=== PATIENT | male | born 1955 | race Caucasian/White ===

== ENCOUNTER 2018-01-31 08:20 | Day surgery (SDC) | payer OTHER ==
[2018-01-28 10:03] VITALS: BMI 31.8
[~2018-01-31 08:20] MED LIST: Dexamethasone 20 MG/5 ML VIAL ONE; Glycopyrrolate 0.2 MG/ML 5 ML SYRINGE ONE; Ketorolac Tromethamine 30 MG/ML VIAL ONE; Lidocaine 1% PF 5 ML VIAL ONE; Ondansetron HCl/PF 4 MG/2 ML Vial ONE; PHENYLEPHRINE-NS 100 MCG/ML 10 ML SYRINGE ONE; PROPOFOL 200 MG/20 ML VIAL ONE
[2018-01-31 09:37] LABS: #Basophils 0.1 thou/uL (0.0-0.2); #Eosinphils 0.4 thou/uL (0.0-0.7); #Lymphocytes 2.7 thou/uL (1.20-3.40); #Monocytes 0.8 thou/uL (0.11-0.59); #Neutrophils 3.2 thou/uL (1.40-6.50); %Basophils 1.4 % (0.0-1.0); %Eosinophils 6.2 % (0.0-10.0); %Lymphocytes 37.5 % (21.0-51.0); %Monocytes 10.7 % (0.0-10.0); %Neutrophils 44.2 % (42.0-75.0); Hemoglobin 15.8 g/dL (14.0-18.0); Mean Corpuscular HGB CONC 32.9 g/dL (32.0-36.0); Mean Corpuscular Hemoglobin 29.1 pg (27.0-31.0); Mean Corpuscular Volume 88.6 fL (78.0-98.0); Mean Platelet Volume 8.7 fL (7.4-10.4); Platelet Count 179 thou/uL (130-400); RBC Distribution Width 12.4 % (11.5-14.5); Red Blood Cell (RBC) Count 5.43 mill/uL (4.70-6.10); White Blood Cell (WBC) Count 7.2 thou/uL (4.8-10.8)
[2018-01-31] MEDS ORDERED: CEFAZOLIN/Water 2 GM/20 ML SYRINGE ONE (09:47)
[2018-01-31 09:58] LABS: Anion Gap 15 mmol/L (10-20); BUN (Urea Nitrogen) 21 mg/dL (8.4-25.7); Calc. Creatinine Clearance 75 mL/min (70-130); Calcium 9.9 mg/dL (7.8-10.44); Carbon Dioxide 22 mmol/L (22-29); Chloride 107 mmol/L (98-107); Estimated GFR-MDRD 45; Glucose 273 mg/dL (70-105); Potassium 4.8 mmol/L (3.5-5.1); Sodium 139 mmol/L (136-145)
[2018-01-31] MEDS ORDERED: Sodium Chloride 0.9% 10 ML ONE (11:19)
[2018-01-31] MEDS ORDERED: Gelfilm 1 EA Packet ONE (11:19)
[2018-01-31] MEDS ORDERED: Fentanyl 100 MCG/2 ML VIAL ONE ×3 (11:43→14:00)
[2018-01-31] MEDS ORDERED: Fentanyl 250 MCG/5 ML VIAL ONE (11:54)
--- NOTE | 2018-01-31 15:27 | OP ---
DATE OF PROCEDURE: 01/31/2018 SURGEON: Lazaro Berry M.D. IMPLEMENTATION MANAGER: Alan Bolton PA-C. PROCEDURE: Anterior cervical discectomy C5-C6, interbody arthrodesis, intravertebral biomechanical d evice, local morselized autograft, demineralized bone matrix, anterior titanium instrumentation C5-C6 . PROCEDURE IN DETAIL: The patient was brought to the operating room, intubated. He was positioned richard pine, head in modest extension on a gel-filled donut. Incision was made in the right precervical are a and dissecting medial to the sternocleidomastoid muscle, identified the anterior cervical spine and our level was confirmed by x-ray. We debrided extensive anterior osteophytes, placed distraction ac ross C5-C6 and removed the intravertebral disc, which was already quite collapsed. The bony endplate s were then decorticated for the purpose of arthrodesis and appropriately sized intravertebral biomec hanical PEEK device was brought into the field, filled with demineralized bone matrix and local tolbert lized autograft, and tapped into place securely at C5-C6. Next, an anterior plate was brought in the field and secured to C5 and C6 using two 14 mm screws at each level. The wound was then extensively irrigated, immaculate hemostasis was secured, and the wound was closed in anatomic layers.
[2018-01-31] MEDS ORDERED: HYDROcodone/Acetaminophen 10/325 mg Tablet ONE (15:39)
== END 2018-01-31 16:10 | disposition home or self-care (01) ==
LOC: SDC 08:20
PROVIDERS: ATTEND Neurological Surgery
PROC: 0RG1070 Fusion of Cervical Vertebral Joint with Autologous Tissue Substitute, Anterior Approach, Anterior Column, Open Approach (ICD-10-PCS; principal; 2018-01-31)
PROC: 0RG10A0 Fusion of Cervical Vertebral Joint with Interbody Fusion Device, Anterior Approach, Anterior Column, Open Approach (ICD-10-PCS; principal; 2018-01-31)
PROC: 0RG10J0 Fusion of Cervical Vertebral Joint with Synthetic Substitute, Anterior Approach, Anterior Column, Open Approach (ICD-10-PCS; principal; 2018-01-31)
PROC: 0RB30ZZ Excision of Cervical Vertebral Disc, Open Approach (ICD-10-PCS; principal; 2018-01-31)
DX: M50.122 Cervical disc disorder at C5-C6 level with radiculopathy (principal); E11.9 Type 2 diabetes mellitus without complications; G89.29 Other chronic pain; I10 Essential (primary) hypertension; Z79.4 Long term (current) use of insulin; Z79.899 Other long term (current) drug therapy; Z88.5 Allergy status to narcotic agent
CPT/HCPCS: 36415; 76001; 80048; 85025; 93005; 93010; 96374; A4216; C1713; C1776; J1100; J1885; J2001; J2405; J2704; J3010; J3490

== ENCOUNTER 2018-03-29 14:49 | Outpatient (CLI) | payer OTHER ==
--- NOTE | 2018-03-29 16:53 | RAD ---
TWO VIEWS CERVICAL SPINE: Comparison: 02-15-18 History: Cervical radiculopathy. FINDINGS: On the AP projection, there is no malalignment. On the open mouth projection, lateral masses of C1 an d C2 articulate appropriately. The odontoid process is intact. No prevertebral soft tissue swelling. Pre dental space is normal. Uncomplicated cervical fusion at C5 -6. No perihardware loosening. Disc prosthesis is stable in position. No evidence of fracture. Limite d evaluation of C7 vertebral body as well as cervicothoracic junction. IMPRESSION: Uncomplicated cervical fusion hardware. POS: [facility]
== END 2018-03-29 14:50 | disposition home or self-care (01) ==
LOC: TBSIIMAG 14:49
PROVIDERS: ATTEND Neurological Surgery
DX: M54.12 Radiculopathy, cervical region (principal); Z98.1 Arthrodesis status
CPT/HCPCS: 72040

== ENCOUNTER 2018-04-27 06:51 | Day surgery (SDC) | payer OTHER ==
[2018-04-26 11:38] VITALS: BMI 32.5
[2018-04-27 08:14] VITALS: BP 97/69; TEMP 97.4
--- NOTE | 2018-04-27 08:48 | CT ---
BRAIN CT WITHOUT IV CONTRAST: History: 62-year-old male with history of left sided weakness. FINDINGS: Mild atrophy and chronic white matter ischemic change. No focal mass or midline shift. No intra or ex traaxial hemorrhage. Sinuses and mastoids are clear of acute process. IMPRESSION: No acute intracranial process. No mass or bleed. POS: [facility]
--- NOTE | 2018-04-27 09:46 | RAD ---
CERVICAL MYELOGRAM: INDICATIONS: Radiculopathy. TOTAL FLUOROSCOPIC TIME: 1.7 minutes TOTAL EXPOSURE: 842.2 Gy per m2. TECHNIQUE: Informed consent was obtained. Pre-procedure housing assistant images were obtained of the cervical spine and mahin mbar spine. The site overlying the left L2-L3 interlaminar space was marked on the patient prior to the procedure. The patient was prone on the fluoroscopic table. A time-out was performed. The site was prepped and draped in the usual sterile fashion. Buffered 1% Lidocaine was administered to the overlying subcutaneous tissues. Under fluoroscopic guidance, a 22 gauge spinal needle was guided moustapha n into the thecal sac. There was instillation of 10 mL of Omnipaque 300. The patient was having tyree e lower leg radicular symptoms; therefore, the full 12 of 15 mL was not administered. The inner styl et was replaced within the needle, and the needle was removed. The patient was then placed in the Tr endelenburg position. Contrast flow was visualized up to the level of the cervicothoracic spine. Th e patient was having radiculopathy symptoms within the upper extremity. The patient was then transfe rred to a gurney and put in Trendelenburg, in a supine position. The patient tolerated the procedure , otherwise, without difficulty. FINDINGS: Cervical spine radiographs demonstrate ACDF at C5-C6. Spine alignment is preserved. There is mild d isk degenerative disease at C4-C5 and C5-C6. The prevertebral soft tissues are normal appearing. Th e lumbar spine demonstrates vascular calcification of the abdominal aorta. There is mild multilevel disk degenerative disease. IMPRESSION: Successful cervical myelogram. POS: [facility]
--- NOTE | 2018-04-27 10:34 | CT ---
CT CERVICAL MYELOGRAM: INDICATIONS: Cervical radiculopathy. TECHNIQUE: Multiple CT images were obtained of the cervical spine following the introduction of intrathecal Omni paque 300 contrast. Please see the cervical myelogram for full details concerning the injection tech nique. FINDINGS: There is an ACDF involving C5-C6 with solid osseous incorporation of the interbody bone graft. Spina l alignment is preserved. The visualized aspects of the posterior fossa are unremarkable. The lung apices are clear. The prevertebral soft tissues are normal appearing. C2-C3: There is no appreciable central canal or neural foraminal narrowing. C3-C4: There is a small central disc protrusion without appreciable central canal or neural foramina l narrowing. C4-C5: There is a mild broad-based disc bulge without appreciable central canal or neural foraminal narrowing. C5-C6: There is uncovertebral hypertrophy and facet joint degenerative change bilaterally, greater o n the right, inducing moderate to severe right and mild left neural foraminal narrowing. C6-C7: There is no appreciable central canal or neural foraminal narrowing. C7-T1: There is no appreciable central canal or neural foraminal narrowing. IMPRESSION: 1. Moderate to severe right and mild left neural foraminal narrowing at C5-C6. 2. Anterior cervical diskectomy and fusion at C5-C6 with solid osseous incorporation. 3. Mild multilevel spondylosis of the cervical spine. POS: [facility]
== END 2018-04-27 10:45 | disposition home or self-care (01) ==
LOC: RAD 06:51
PROVIDERS: ATTEND Neurological Surgery
PROC: B01BYZZ Fluoroscopy of Spinal Cord using Other Contrast (ICD-10-PCS; principal; 2018-04-27)
DX: M50.121 Cervical disc disorder at C4-C5 level with radiculopathy (principal); G45.9 Transient cerebral ischemic attack, unspecified
CPT/HCPCS: 62302; 70450; 72126

== ENCOUNTER 2018-07-31 10:01 | Emergency (ER) | payer OTHER ==
[2018-07-31] MEDS ORDERED: Lidocaine 1% PF 5 ML VIAL ONE (11:31)
[2018-07-31] MEDS ORDERED: cefTRIAXone\\ROCEPHIN 1 GM VIAL ONE (11:31)
[2018-07-31] MEDS ORDERED: Dexamethasone 4 mg/ml Vial ONE (11:31)
== END 2018-07-31 12:06 | disposition home or self-care (01) ==
LOC: ERS 10:01
DX: J02.9 Acute pharyngitis, unspecified (principal); K20.9 Esophagitis, unspecified; E11.9 Type 2 diabetes mellitus without complications; Z79.84 Long term (current) use of oral hypoglycemic drugs; Z79.899 Other long term (current) drug therapy
CPT/HCPCS: 87081; 87430; 96372; J0696; J1100; J2001

== ENCOUNTER 2018-10-15 19:18 | Emergency (ER) | payer OTHER ==
[2018-10-15] MEDS ORDERED: Morphine 4 MG/ML VIAL ONE (19:49)
[2018-10-15] MEDS ORDERED: Ondansetron PF 4 MG/2 ML Vial ONE (19:49)
[2018-10-15] MEDS ORDERED: Pantoprazole 40 MG VIAL ONE (19:49)
[2018-10-15 19:56] LABS: Hemoglobin 16.9 g/dL (14.0-18.0); Mean Corpuscular HGB CONC 32.3 g/dL (32.0-36.0); Mean Corpuscular Hemoglobin 28.8 pg (27.0-31.0); Mean Corpuscular Volume 89.4 fL (78.0-98.0); Mean Platelet Volume 8.4 fL (7.4-10.4); Platelet Count 195 thou/uL (130-400); RBC Distribution Width 12.3 % (11.5-14.5); Red Blood Cell (RBC) Count 5.85 mill/uL (4.70-6.10); White Blood Cell (WBC) Count 13.7 thou/uL (4.8-10.8)
[2018-10-15 20:04] LABS: INR-International Normal Ratio 1.1; PTT 27.1 SEC (22.9-36.1); Prothrombin Time 13.8 SEC (12.0-14.7)
[2018-10-15 20:17] LABS: Band 13 % (5-11); Lymphocytes 4 % (21-51); MDiff Complete? YES; Monocytes 11 % (0-10); Neutrophil 69 % (42-75); Platelet Morphology Comment Appears Adequate; RBC Morphology Normal; Reactive Lymphocytes 3 % (0-10)
[2018-10-15 20:24] LABS: ALT (SGPT) 34 U/L (8-55); AST (SGOT) 33 U/L (5-34); Albumin 4.1 g/dL (3.4-4.8); Alkaline Phosphatase 78 U/L (40-150); Anion Gap 16 mmol/L (10-20); BUN (Urea Nitrogen) 24 mg/dL (8.4-25.7); Calc. Creatinine Clearance 0 mL/min (70-130); Calcium 9.2 mg/dL (7.8-10.44); Carbon Dioxide 24 mmol/L (23-31); Chloride 104 mmol/L (98-107); Estimated GFR-MDRD 52; Globulin 3.1 g/dL (2.4-3.5); Glucose 126 mg/dL (80-115); Lipase 40 U/L (8-78); Potassium 4.5 mmol/L (3.5-5.1); Protein, Total 7.2 g/dL (5.8-8.1); Sodium 139 mmol/L (136-145)
== END 2018-10-15 22:41 | disposition home or self-care (01) ==
LOC: ERS 19:18
DX: R11.2 Nausea with vomiting, unspecified (principal); R19.7 Diarrhea, unspecified; E11.9 Type 2 diabetes mellitus without complications; Z79.899 Other long term (current) drug therapy; Z79.84 Long term (current) use of oral hypoglycemic drugs
CPT/HCPCS: 36415; 80053; 82274; 83690; 84484; 85025; 85610; 85730; 93005; 96361; 96374; 96375; C9113; J2270; J2405

== ENCOUNTER 2018-12-22 16:15 | Emergency (ER) | payer OTHER ==
[2018-12-22 17:01] LABS: #Basophils 0.1 thou/uL (0.0-0.2); #Lymphocytes 1.1 thou/uL (1.20-3.40); #Monocytes 1.1 thou/uL (0.11-0.59); %Basophils 0.5 % (0.0-1.0); %Eosinophils 0.3 % (0.0-10.0); %Lymphocytes 10.5 % (21.0-51.0); %Monocytes 10.7 % (0.0-10.0); Hemoglobin 15.9 g/dL (14.0-18.0); Mean Corpuscular HGB CONC 32.9 g/dL (32.0-36.0); Mean Corpuscular Hemoglobin 29.4 pg (27.0-31.0); Mean Corpuscular Volume 89.4 fL (78.0-98.0); Mean Platelet Volume 8.6 fL (7.4-10.4); Platelet Count 159 thou/uL (130-400); RBC Distribution Width 12.1 % (11.5-14.5); White Blood Cell (WBC) Count 10.2 thou/uL (4.8-10.8)
--- NOTE | 2018-12-22 17:01 | CT ---
CT head noncontrast HISTORY: Headache. Fever. COMPARISON: 04/27/2018. FINDINGS: There is no evidence of acute intracranial hemorrhage or infarct. The ventricles appear nor mal in size, shape and position. There is no mass effect or shift of midline structures. Mild chronic ischemic small vessel disease. IMPRESSION: No acute intracranial abnormalities are demonstrated.
[2018-12-22 17:24] LABS: ALT (SGPT) 22 U/L (8-55); AST (SGOT) 22 U/L (5-34); Albumin 4.4 g/dL (3.4-4.8); Alkaline Phosphatase 82 U/L (40-150); Anion Gap 18 mmol/L (10-20); BUN (Urea Nitrogen) 16 mg/dL (8.4-25.7); Bilirubin, Total 1.1 mg/dL (0.2-1.2); Calc. Creatinine Clearance 0 mL/min (70-130); Calcium 9.3 mg/dL (7.8-10.44); Carbon Dioxide 19 mmol/L (23-31); Chloride 105 mmol/L (98-107); Estimated GFR-MDRD 51; Glucose 105 mg/dL (80-115); Potassium 4.6 mmol/L (3.5-5.1); Protein, Total 7.4 g/dL (5.8-8.1); Sodium 137 mmol/L (136-145)
[2018-12-22] MEDS ORDERED: Acetaminophen 500 MG TAB ONE ×2 (17:25)
[2018-12-22] MEDS ORDERED: diphenhydrAMINE 50 MG CAP ONE (18:48)
[2018-12-22] MEDS ORDERED: Metoclopramide 10 MG/10 ML UDCUP ONE (18:48)
[2018-12-22] MEDS ORDERED: diphenhydrAMINE 50 MG/ML VIAL ONE (18:50)
[2018-12-22] MEDS ORDERED: Metoclopramide HCl 10 MG/2 ML VIAL ONE (18:51)
== END 2018-12-22 19:29 | disposition home or self-care (01) ==
LOC: ERS 16:15
DX: R50.9 Fever, unspecified (principal); R51 Headache; E11.9 Type 2 diabetes mellitus without complications; F32.9 Major depressive disorder, single episode, unspecified; Z79.4 Long term (current) use of insulin; Z79.899 Other long term (current) drug therapy
CPT/HCPCS: 36415; 70450; 80053; 85025; 87040; 87804; 96361; 96365; 96375; J1200; J2765; Q0163

== ENCOUNTER 2018-12-26 13:29 | Emergency (ER) | payer OTHER ==
--- NOTE | 2018-12-26 15:24 | ULT ---
ULTRASOUND WITH DOPPLER DUPLEX VENOUS LOWER EXTREMITY LEFT CPT: 96943 ICD-10-PCS: B54D HISTORY: Pain/edema. TECHNIQUE: Color flow Doppler, spectral waveform analysis of pulsed Doppler, and rocha-scale imaging with dayanara giovanny and augmentation, were used to evaluate the bilateral common femoral, femoral, popliteal, pesticide chemist ior tibial, and superficial femoral, veins; and the proximal portions of the profunda femoral and gre ater saphenous, veins. FINDINGS: There is appropriate compressibility and flow of the imaged deep vein system of the left lower extrem ity. Incidental note of prominent-sized lymph nodes of the left inguinal region. Correlate clinically. D emonstrated lymph node measures approximately 3.2 x 1.3 cm. IMPRESSION: 1. No deep vein thrombosis of imaged left lower extremity. 2. Adenopathy, left inguinal region. Correlate clinically. POS: [facility]
== END 2018-12-26 17:22 | disposition left against medical advice (07) ==
LOC: ERS 13:29
DX: Z53.21 Procedure and treatment not carried out due to patient leaving prior to being seen by health care provider (principal)

== ENCOUNTER 2018-12-26 17:58 | Emergency (ER) | payer OTHER ==
[2018-12-26 19:27] LABS: #Basophils 0.1 thou/uL (0.0-0.2); #Eosinphils 0.3 thou/uL (0.0-0.7); #Lymphocytes 2.6 thou/uL (1.20-3.40); #Monocytes 0.9 thou/uL (0.11-0.59); #Neutrophils 3.4 thou/uL (1.40-6.50); %Basophils 1.4 % (0.0-1.0); %Eosinophils 4.2 % (0.0-10.0); %Lymphocytes 35.8 % (21.0-51.0); %Monocytes 11.8 % (0.0-10.0); %Neutrophils 46.7 % (42.0-75.0); Hemoglobin 15.2 g/dL (14.0-18.0); Mean Corpuscular HGB CONC 33.7 g/dL (32.0-36.0); Mean Corpuscular Hemoglobin 28.9 pg (27.0-31.0); Mean Corpuscular Volume 85.7 fL (78.0-98.0); Mean Platelet Volume 8.6 fL (7.4-10.4); Platelet Count 228 thou/uL (130-400); Red Blood Cell (RBC) Count 5.26 mill/uL (4.70-6.10); White Blood Cell (WBC) Count 7.3 thou/uL (4.8-10.8)
[2018-12-26 19:41] LABS: ALT (SGPT) 44 U/L (8-55); AST (SGOT) 40 U/L (5-34); Albumin 4.1 g/dL (3.4-4.8); Alkaline Phosphatase 86 U/L (40-150); Anion Gap 15 mmol/L (10-20); BUN (Urea Nitrogen) 19 mg/dL (8.4-25.7); Bilirubin, Total 0.7 mg/dL (0.2-1.2); Calc. Creatinine Clearance 0 mL/min (70-130); Calcium 9.9 mg/dL (7.8-10.44); Carbon Dioxide 25 mmol/L (23-31); Chloride 106 mmol/L (98-107); Estimated GFR-MDRD 49; Globulin 3.7 g/dL (2.4-3.5); Glucose 82 mg/dL (80-115); Potassium 4.4 mmol/L (3.5-5.1); Protein, Total 7.8 g/dL (5.8-8.1); Sodium 142 mmol/L (136-145)
--- NOTE | 2018-12-26 20:15 | RAD ---
EXAM: 2 views of the left hip HISTORY: Left lower extremity swelling and rash; joint pain COMPARISON: None FINDINGS: 2 views of the left hip shows no evidence of acute fracture or dislocation. No degenerative changes are seen. No soft tissue swelling is present. IMPRESSION: No evidence of acute osseous abnormality.
== END 2018-12-26 20:36 | disposition home or self-care (01) ==
LOC: SCSER 17:58
DX: L03.116 Cellulitis of left lower limb (principal); I95.9 Hypotension, unspecified; E11.9 Type 2 diabetes mellitus without complications; M19.90 Unspecified osteoarthritis, unspecified site
CPT/HCPCS: 80053; 85025; 87040

== ENCOUNTER 2019-02-05 19:22 | Emergency (ER) | payer OTHER ==
[2019-02-05 19:51] LABS: Bilirubin Negative (Negative); Blood, Urine Negative (Negative); Clarity Slightly Cloudy (Clear); Glucose, Urine (Dipstick) Negative (Negative); Leukocyte Negative (Negative); Nitrite Negative (Negative); Protein, Urine (Dipstick) Negative (Neg-Trace); Urobilinogen 0.2 mg/dL (Less than 2)
[2019-02-05 19:55] LABS: #Basophils 0.1 thou/uL (0.0-0.2); #Eosinphils 0.3 thou/uL (0.0-0.7); #Monocytes 0.8 thou/uL (0.11-0.59); %Basophils 1.2 % (0.0-1.0); %Eosinophils 2.9 % (0.0-10.0); %Lymphocytes 33.1 % (21.0-51.0); %Monocytes 8.2 % (0.0-10.0); %Neutrophils 54.7 % (42.0-75.0); Hemoglobin 14.7 g/dL (14.0-18.0); Mean Corpuscular HGB CONC 33.5 g/dL (32.0-36.0); Mean Corpuscular Hemoglobin 29.5 pg (27.0-31.0); Mean Platelet Volume 7.6 fL (7.4-10.4); Platelet Count 202 thou/uL (130-400); RBC Distribution Width 12.5 % (11.5-14.5); Red Blood Cell (RBC) Count 4.98 mill/uL (4.70-6.10); White Blood Cell (WBC) Count 9.1 thou/uL (4.8-10.8)
[2019-02-05 20:11] LABS: ALT (SGPT) 23 U/L (8-55); AST (SGOT) 24 U/L (5-34); Alkaline Phosphatase 71 U/L (40-150); Anion Gap 15 mmol/L (10-20); BUN (Urea Nitrogen) 27 mg/dL (8.4-25.7); Bilirubin, Total 0.5 mg/dL (0.2-1.2); Calc. Creatinine Clearance 0 mL/min (70-130); Calcium 9.3 mg/dL (7.8-10.44); Carbon Dioxide 24 mmol/L (23-31); Chloride 109 mmol/L (98-107); Estimated GFR-MDRD 39; Globulin 3.3 g/dL (2.4-3.5); Glucose 83 mg/dL (80-115); Lipase 69 U/L (8-78); Potassium 4.9 mmol/L (3.5-5.1); Protein, Total 7.3 g/dL (5.8-8.1); Sodium 143 mmol/L (136-145)
--- NOTE | 2019-02-05 20:20 | CT ---
CT OF THE ABDOMEN AND PELVIS WITHOUT CONTRAST: Comparison: None. History: Left flank pain for one week that is getting progressively worse. Technique: Multiple contiguous axial images were obtained in a CT of the abdomen and pelvis without c ontrast. Coronal reformats were performed. FINDINGS: There is no obstructing calcifications in both kidneys measuring up to 6 mm in size on the right. No calcifications are seen in either ureter or within the urinary bladder. There are hypodensities in th e bilateral kidneys measuring up to 6.2 cm in size which represents cysts. The liver, gallbladder, adrenal glands, and spleen are unremarkable. There are scattered calcificatio ns throughout the pancreas which are likely from chronic pancreatitis. The large and small bowel are unremarkable. The appendix is normal. No abdominal or pelvic lymphadenopathy are seen. Atherosclerotic calcifications are seen in the aorta. Degenerative changes are seen in the spine. The visualized inferior thorax and abdominal wall soft ti ssues are unremarkable. IMPRESSION: 1. Bilateral nonobstructing renal calcifications. 2. Bilateral renal cysts. 3. Calcifications in the pancreas, likely secondary to chronic pancreatitis. POS: [facility]
== END 2019-02-05 20:40 | disposition home or self-care (01) ==
LOC: SCSER 19:22
DX: R10.9 Unspecified abdominal pain (principal); I95.9 Hypotension, unspecified; E11.9 Type 2 diabetes mellitus without complications; M19.90 Unspecified osteoarthritis, unspecified site; Z87.442 Personal history of urinary calculi; Z79.899 Other long term (current) drug therapy; Z79.1 Long term (current) use of non-steroidal anti-inflammatories (NSAID); Z79.84 Long term (current) use of oral hypoglycemic drugs
CPT/HCPCS: 74176; 80053; 81003; 83690; 85025; 96361; 96374; J1170

== ENCOUNTER 2021-10-02 09:59 | Outpatient (CLI) | payer OTHER | END 2021-10-02 10:00 | disposition home or self-care (01) | LOC: BICCT 09:59 | PROVIDERS: ATTEND Internal Medicine | DX: J43.2 Centrilobular emphysema (principal); J34.3 Hypertrophy of nasal turbinates ==

== ENCOUNTER 2022-02-10 10:04 | Outpatient (CLI) | payer OTHER ==
[2022-02-10 12:28] LABS: Anion Gap 14 mmol/L (10-20); BUN (Urea Nitrogen) 25 mg/dL (8.4-25.7); Calc. Creatinine Clearance 0 mL/min (70-130); Calcium 9.7 mg/dL (7.8-10.44); Carbon Dioxide 25 mmol/L (23-31); Chloride 104 mmol/L (98-107); Estimated GFR 52; Glucose 92 mg/dL (80-115); Potassium 5.2 mmol/L (3.5-5.1); Sodium 138 mmol/L (136-145)
== END 2022-02-10 10:05 | disposition home or self-care (01) ==
LOC: LABBT 10:04
PROVIDERS: ATTEND Specialist
DX: Z01.818 Encounter for other preprocedural examination (principal); J32.9 Chronic sinusitis, unspecified; J34.3 Hypertrophy of nasal turbinates; J30.9 Allergic rhinitis, unspecified; R09.81 Nasal congestion; R68.89 Other general symptoms and signs; Z20.822 Contact with and (suspected) exposure to COVID-19
CPT/HCPCS: 80048; 85014; 85018; 87811; 93005; 93010

== ENCOUNTER 2022-02-12 07:55 | Day surgery (SDC) | payer OTHER ==
[2022-02-11 11:08] VITALS: BMI 28.5
[2022-02-12] MEDS ORDERED: Oxymetazoline HCl 0.05% (30 ML BOT) ONE ×2 (09:09→10:51)
[2022-02-12] MEDS ORDERED: fentaNYL Citrate/PF 100 MCG/2 ML SYRINGE ONE (10:42)
[2022-02-12] MEDS ORDERED: Midazolam HCl 2 mg/2 ml Vial ONE (10:42)
[2022-02-12] MEDS ORDERED: Lidocaine 0.5%/Epinephrine 1:200,000 50 ml Vial ONE (10:51)
[2022-02-12] MEDS ORDERED: Bacitracin Zinc Ointment 30 gm TUBE ONE (10:51)
[2022-02-12] MEDS ORDERED: Lidocaine 1% PF 5 ML VIAL ONE (11:28)
[2022-02-12] MEDS ORDERED: Rocuronium Bromide 10 MG/ML (10ML VIAL) ONE (11:28)
[2022-02-12] MEDS ORDERED: PROPOFOL 200 MG/20 ML VIAL ONE (11:28)
[2022-02-12] MEDS ORDERED: Ondansetron PF 4 MG/2 ML Vial ONE (11:28)
[2022-02-12] MEDS ORDERED: SUGAMMADEX SODIUM 200 MG/2 ML VIAL ONE (11:50)
[2022-02-12] MEDS ORDERED: HYDROcodone/Acetaminophen 5/325 mg Tablet ONE (13:49)
== END 2022-02-12 14:28 | disposition home or self-care (01) ==
LOC: SDC 07:55
PROVIDERS: ATTEND Specialist
PROC: 09TU8ZZ Resection of Right Ethmoid Sinus, Via Natural or Artificial Opening Endoscopic (ICD-10-PCS; principal; 2022-02-12)
PROC: 099R8ZZ Drainage of Left Maxillary Sinus, Via Natural or Artificial Opening Endoscopic (ICD-10-PCS; principal; 2022-02-12)
PROC: 09SL8ZZ Reposition Nasal Turbinate, Via Natural or Artificial Opening Endoscopic (ICD-10-PCS; principal; 2022-02-12)
PROC: 099T8ZZ Drainage of Left Frontal Sinus, Via Natural or Artificial Opening Endoscopic (ICD-10-PCS; principal; 2022-02-12)
PROC: 09TV8ZZ Resection of Left Ethmoid Sinus, Via Natural or Artificial Opening Endoscopic (ICD-10-PCS; principal; 2022-02-12)
PROC: 099S8ZZ Drainage of Right Frontal Sinus, Via Natural or Artificial Opening Endoscopic (ICD-10-PCS; principal; 2022-02-12)
PROC: 099Q8ZZ Drainage of Right Maxillary Sinus, Via Natural or Artificial Opening Endoscopic (ICD-10-PCS; principal; 2022-02-12)
DX: J32.9 Chronic sinusitis, unspecified (principal); J34.3 Hypertrophy of nasal turbinates; J30.9 Allergic rhinitis, unspecified; G89.29 Other chronic pain; R51.9 Headache, unspecified; Z79.4 Long term (current) use of insulin; Z79.84 Long term (current) use of oral hypoglycemic drugs; Z79.899 Other long term (current) drug therapy; Z88.5 Allergy status to narcotic agent; Z98.1 Arthrodesis status
CPT/HCPCS: 36416; J2001; J2250; J2405; J2704

== ENCOUNTER 2022-09-11 10:18 | Outpatient (CLI) | payer OTHER | END 2022-09-11 10:19 | disposition home or self-care (01) | LOC: BICCT 10:18 | PROVIDERS: ATTEND Internal Medicine | DX: M54.6 Pain in thoracic spine (principal); M47.814 Spondylosis without myelopathy or radiculopathy, thoracic region | CPT/HCPCS: 72128 ==

== ENCOUNTER 2023-01-07 08:38 | Outpatient (CLI) | payer OTHER | END 2023-01-07 08:39 | disposition home or self-care (01) | LOC: BICMRI 08:38 | PROVIDERS: ATTEND Anesthesiology Pain Medicine | DX: M47.26 Other spondylosis with radiculopathy, lumbar region (principal); M51.16 Intervertebral disc disorders with radiculopathy, lumbar region; N28.9 Disorder of kidney and ureter, unspecified; M89.38 Hypertrophy of bone, other site | CPT/HCPCS: 72148 ==

== ENCOUNTER 2023-01-07 09:58 | Outpatient (CLI) | payer OTHER | END 2023-01-07 09:59 | disposition home or self-care (01) | LOC: RAD 09:58 | PROVIDERS: ATTEND Anesthesiology Pain Medicine | DX: M47.26 Other spondylosis with radiculopathy, lumbar region (principal) | CPT/HCPCS: 72100 ==

== ENCOUNTER 2023-05-18 13:17 | Outpatient (CLI) | payer OTHER ==
[2023-05-18 14:26] LABS: Hematocrit 50.2 % (38.8-50.0); Hemoglobin 17.1 g/dL (13.5-17.5); Mean Corpuscular HGB CONC 34.1 g/dL (32.0-36.0); Mean Corpuscular Hemoglobin 29.7 pg (27.0-33.0); Mean Corpuscular Volume 87.2 fl (81.2-95.1); Mean Platelet Volume 11.3 fl (7.4-10.4); Platelet Count 206 10x3/uL (150-450); RBC Distribution Width 12.9 % (11.5-14.5); Red Blood Cell (RBC) Count 5.76 10x6/uL (4.32-5.72); White Blood Cell (WBC) Count 8.5 10x3/uL (3.5-10.5)
[2023-05-18 14:51] LABS: Anion Gap 16 mmol/L (10-20); BUN (Urea Nitrogen) 21 mg/dL (8.4-25.7); Calc. Creatinine Clearance 0 mL/min (70-130); Calcium 9.3 mg/dL (7.8-10.44); Carbon Dioxide 21 mmol/L (23-31); Chloride 108 mmol/L (98-107); Estimated GFR 57; Glucose 114 mg/dL (80-115); Potassium 4.7 mmol/L (3.5-5.1); Sodium 140 mmol/L (136-145)
== END 2023-05-18 13:18 | disposition home or self-care (01) ==
LOC: LABBT 13:17
PROVIDERS: ATTEND Neurological Surgery
DX: Z01.818 Encounter for other preprocedural examination (principal); M48.062 Spinal stenosis, lumbar region with neurogenic claudication
CPT/HCPCS: 80048; 85027; 93005; 93010

== ENCOUNTER 2023-05-24 07:54 | Observation (INO) | payer OTHER ==
[2023-05-24] MEDS ORDERED: Sodium Chloride 0.9% 100 ML ONE (10:25)
[2023-05-24] MEDS ORDERED: CEFAZOLIN 2 GM VIAL ONE (10:25)
[2023-05-24] MEDS ORDERED: fentaNYL PF 100 MCG/2 ML SYRINGE ONE ×2 (10:58→12:59)
[2023-05-24] MEDS ORDERED: PROPOFOL 20 ML ONE (10:58)
[2023-05-24] MEDS ORDERED: Lidocaine 1% PF 5 ML VIAL ONE ×2 (10:59→11:58)
[2023-05-24] MEDS ORDERED: Rocuronium Bromide 10 MG/ML (10ML VIAL) ONE ×2 (11:00→11:58)
[2023-05-24] MEDS ORDERED: NEOSTIGMINE 3 MG/3 ML SYR 3 MG/3 ML SYRINGE ONE ×2 (11:58→13:00)
[2023-05-24] MEDS ORDERED: Ondansetron PF 4 MG/2 ML Vial ONE ×2 (11:58→12:38)
[2023-05-24] MEDS ORDERED: Dexamethasone 20 MG/5 ML VIAL ONE ×2 (11:58→12:38)
[2023-05-24] MEDS ORDERED: Glycopyrrolate 0.2 MG/ML 5 ML SYRINGE ONE ×2 (11:58→13:00)
[2023-05-24] MEDS ORDERED: PHENYLEPHRINE-NS 100 MCG/ML 10 ML SYRINGE ONE (11:58)
[2023-05-24] MEDS ORDERED: Albuterol HFA (OR) 200 PUFF INH ONE (11:58)
[2023-05-24] MEDS ORDERED: PROPOFOL 200 MG/20 ML VIAL ONE (11:58)
[2023-05-24] MEDS ORDERED: Vancomycin 1 GM VIAL ONE (12:27)
[2023-05-24] MEDS ORDERED: Promethazine HCl 25 MG/ML VIAL IM PRN (12:48)
[2023-05-24] MEDS ORDERED: PACU-Morphine 4MG/ML VIAL SLOW IVP PRN (12:48)
[2023-05-24] MEDS ORDERED: Morphine Sulfate 2 MG/ML SYRINGE SLOW IVP PRN (12:48)
[2023-05-24] MEDS ORDERED: HYDROmorphone 2 MG/ML VIAL SLOW IVP PRN (12:48)
[2023-05-24] MEDS ORDERED: Ondansetron HCl/PF 4 MG/2 ML Vial IVP PRN (12:48)
[2023-05-24] MEDS ORDERED: HYDROcodone/Acetaminophen 10/325 mg Tablet PO PRN (13:16)
[2023-05-24] MEDS ORDERED: Acetaminophen 325 MG TAB PO PRN (13:16)
[2023-05-24] MEDS ORDERED: Mag-Al 1200 mg/1200 mg/30 ML UDCUP PO PRN (13:16)
[2023-05-24] MEDS ORDERED: Ondansetron PF 4 MG/2 ML Vial IVP PRN (13:16)
[2023-05-24] MEDS ORDERED: Promethazine 25 MG TAB PO PRN (13:16)
[2023-05-24] MEDS ORDERED: diphenhydrAMINE 50 MG/ML VIAL IVP PRN (13:16)
[2023-05-24] MEDS ORDERED: Glucagon 1 MG/ML KIT IM PRN (13:17)
[2023-05-24] MEDS ORDERED: Dextrose 50% Abboject 50 ML SYRINGE SLOW IVP PRN (13:17)
[2023-05-24] MEDS ORDERED: Dextrose 5% in Water 1,000 ML IV PRN (13:17)
[2023-05-24] MEDS ORDERED: HumaLOG 300 UNITS/3 ML VIAL SC PRN (13:17)
[2023-05-24] MEDS ORDERED: fentaNYL 50 mcg/mL 1 mL Vial ONE ×5 (13:31→17:16)
[2023-05-24] MEDS ORDERED: HYDROmorphone 0.5 MG/0.5 ML SYRINGE ONE ×4 (14:03→16:17)
[2023-05-24] MEDS ORDERED: Midazolam HCl 2 mg/2 ml Vial ONE (14:35)
[2023-05-24] MEDS: HYDROcodone/Acetaminophen 10/325 mg Tablet PO PRN ×2 (18:59→23:22)
[2023-05-24] MEDS: CEFAZOLIN 2 GM in Sodium Chloride 0.9% 100 ML IVPB SCH (19:00)
[2023-05-24] MEDS: metFORMIN 500 MG TAB PO SCH (19:00)
[2023-05-24] MEDS: Sodium Chloride 0.9% 1,000 ML IV SCH (19:01)
[2023-05-24] MEDS: glipiZIDE 5 MG TAB PO SCH (19:45)
[2023-05-24] MEDS: Gabapentin 300 MG CAP PO SCH (20:49)
[2023-05-24] MEDS: Cyclobenzaprine 10 MG TAB PO PRN (20:49)
[2023-05-24 22:52] VITALS: BMI 30.6
[2023-05-25] MEDS: HYDROcodone/Acetaminophen 10/325 mg Tablet PO PRN ×2 (03:02→09:43)
[2023-05-25] MEDS: CEFAZOLIN 2 GM in Sodium Chloride 0.9% 100 ML IVPB SCH ×2 (03:05→09:44)
[2023-05-25] MEDS: Sodium Chloride 0.9% 1,000 ML IV SCH (03:06)
[2023-05-25] MEDS: Cyclobenzaprine 10 MG TAB PO PRN (05:40)
[2023-05-25] MEDS: glipiZIDE 5 MG TAB PO SCH (09:44)
[2023-05-25] MEDS: Gabapentin 300 MG CAP PO SCH (09:44)
[2023-05-25] MEDS: metFORMIN 500 MG TAB PO SCH (09:44)
[2023-05-25 11:00] VITALS: BP 150/74; TEMP 98.1
== END 2023-05-25 14:21 | disposition home or self-care (01) ==
LOC: SDC 07:54 → SJJU 18:24
PROVIDERS: ADMIT Neurological Surgery; ATTEND Neurological Surgery
PROC: 01NB0ZZ Release Lumbar Nerve, Open Approach (ICD-10-PCS; principal; 2023-05-25)
DX: M48.062 Spinal stenosis, lumbar region with neurogenic claudication (principal); I10 Essential (primary) hypertension; E11.9 Type 2 diabetes mellitus without complications; G89.29 Other chronic pain; Z88.5 Allergy status to narcotic agent; Z79.899 Other long term (current) drug therapy
CPT/HCPCS: 36416; C1713; J1100; J1170; J1815; J2250; J2405; J2704; J3010; J3370; J3490; J7050

== ENCOUNTER 2024-05-31 11:59 | Outpatient (CLI) | payer OTHER | END 2024-05-31 12:00 | disposition home or self-care (01) | LOC: BICRAD 11:59 | PROVIDERS: ATTEND Podiatrist | DX: M24.872 Other specific joint derangements of left ankle, not elsewhere classified (principal) ==